=== PATIENT | male | born 1980 | race Caucasian/White ===

== ENCOUNTER 2018-10-24 22:48 | Inpatient (IN) | payer OTHER ==
[2018-10-25 00:20] LABS: ADD MAN DIFF? NO
[2018-10-25 00:22] LABS: WHITE BLOOD COUNT 13.3 10^3/ul (4.8-10.8)
[2018-10-25 00:22] LABS: BASOPHIL # 0.1 10^3/ul (0.0-0.1); BASOPHILS % 0.4 % (0.0-2.0); EOSINOPHILS # 0.1 10^3/ul (0.0-0.5); EOSINOPHILS % 0.8 % (0.0-7.0); HEMATOCRIT 45.9 % (42.0-52.0); HEMOGLOBIN 15.5 g/dl (14.0-18.0); LYMPHOCYTES # 2.3 10^3/ul (0.8-2.9); MEAN CORPUSCULAR HEMOGLOBIN 27.9 pg (29.0-33.0); MEAN CORPUSCULAR HGB CONC 33.8 g/dl (32.0-37.0); MEAN CORPUSCULAR VOLUME 82.7 fl (82.0-101.0); MEAN PLATELET VOLUME 9.9 fl (7.4-10.4); MONOCYTES % 7.5 % (0.0-11.0); NEUTROPHIL # 9.9 10^3/ul (1.6-7.5); PLATELET COUNT 272 10^3/UL (140-415); RED BLOOD COUNT 5.55 10^6/ul (4.70-6.10); RED CELL DISTRIBUTION WIDTH 12.3 % (11.5-14.5)
[2018-10-25 00:26] LABS: ADD UMIC NO; UR ASCORBIC ACID NEGATIVE (NEGATIVE); UR BILIRUBIN (Dip) NEGATIVE (NEGATIVE); UR BLOOD (Dip) NEGATIVE (NEGATIVE); UR CLARITY CLEAR (CLEAR); UR COLOR STRAW (YELLOW); UR GLUCOSE (Dip) NEGATIVE (NEGATIVE); UR KETONES (Dip) NEGATIVE (NEGATIVE); UR LEUKOCYTE ESTERASE (Dip) NEGATIVE Leu/ul (NEGATIVE); UR NITRITE (Dip) NEGATIVE (NEGATIVE); UR SPECIFIC GRAVITY (Dip) 1.013 (1.003-1.030); UR TOTAL PROTEIN (Dip) NEGATIVE (NEGATIVE); UR UROBILINOGEN (Dip) NEGATIVE (NEGATIVE)
[2018-10-25] MEDS: KETOROLAC 15 MG INJ IV (00:40)
[2018-10-25 00:41] LABS: INR 0.91; PROTIME 12.4 Sec (11.9-14.9)
[2018-10-25 00:42] LABS: PARTIAL THROMBOPLASTIN TIME 38.2 Sec (23.0-35.0)
[2018-10-25 00:45] LABS: ALANINE AMINOTRANSFERASE 54 IU/L (13-69); ALBUMIN 4.7 g/dl (3.3-4.9); ALBUMIN/GLOBULIN RATIO 1.51; ALKALINE PHOSPHATASE 49 IU/L (42-121); ANION GAP 9 (5-13); ASPARTATE AMINO TRANSFERASE 27 IU/L (15-46); BILIRUBIN,INDIRECT 0.4 mg/dl (0-1.1); BILIRUBIN,TOTAL 0.4 mg/dl (0.2-1.3); BLOOD UREA NITROGEN 10 mg/dl (7-20); CARBON DIOXIDE 30 mmol/L (21-31); CHLORIDE 102 mmol/L (97-110); CREATININE 0.68 mg/dl (0.61-1.24); Estimated GFR > 60 mL/min (>60); GLUCOSE 93 mg/dl (70-220); LIPASE 115 U/L (23-300); POTASSIUM 4.2 mmol/L (3.5-5.1); SODIUM 141 mmol/L (135-144); TOTAL PROTEIN 7.8 g/dl (6.1-8.1)
[2018-10-25] MEDS: SOD CHLORIDE 0.9% 100 ML (01:14)
[2018-10-25] MEDS: morphine 10 MG INJ IV (02:12)
[2018-10-25] MEDS ORDERED: ONDANSETRON 4 MG INJ IV ×2 (05:00→17:30)
[2018-10-25] MEDS ORDERED: ACETAMINOPHEN 325 MG TAB PO (05:00)
[2018-10-25] MEDS ORDERED: CEFAZOLIN 1 GM INJ (07:00)
[2018-10-25] MEDS ORDERED: PANTOPRAZOLE 40 MG INJ IV (12:00)
[2018-10-25] MEDS: FAMOTIDINE 20 MG INJ IV ×2 (12:27→21:20)
[2018-10-25] MEDS: PIPER-TAZO 3.375 GM IV (PMX) 100 ML IVPB ×3 (12:27→23:26)
[2018-10-25] MEDS: DEXTROSE 5%-0.9% NACL 1,000 ML IV (12:27)
[2018-10-25] MEDS ORDERED: METOCLOPRAMIDE 10 MG INJ IV (17:30)
[2018-10-25] MEDS ORDERED: HYDROmorphONE 1 MG/5 ML IV SYRINGE IV ×3 (17:30)
[2018-10-25] MEDS ORDERED: DIPHENHYDRAMINE 50 MG INJ IV (17:30)
[2018-10-25] MEDS ORDERED: ALBUTEROL 0.083% (NEB) 2.5 MG/3 ML AMP HHN (17:30)
[2018-10-25] MEDS ORDERED: FENTAnyl 50 MCG/ML VIAL IV ×3 (17:30)
[2018-10-25] MEDS ORDERED: MEPERIDINE 25 MG INJ IV (17:30)
[2018-10-25] MEDS ORDERED: FENTAnyl 50 MCG/ML VIAL ×2 (17:51→19:41)
[2018-10-25] MEDS ORDERED: ROPIVACAINE 0.5 % 30 ML VIAL (17:51)
[2018-10-25] MEDS: POLYMYXIN/BACITRACIN 1L IRRIG IRR (18:53)
[2018-10-25] MEDS ORDERED: LIDOCAINE 100 MG SYRINGE (19:41)
[2018-10-25] MEDS ORDERED: GLYCOPYRROLATE 0.4 MG INJ (19:41)
[2018-10-25] MEDS ORDERED: PROPOFOL 20 ML (19:41)
[2018-10-25] MEDS ORDERED: SUCCINYLCHOLINE CHLORIDE 100 MG/5 ML SYG IV (19:41)
[2018-10-25] MEDS ORDERED: ROCURONIUM 50 MG INJ (19:41)
[2018-10-25] MEDS ORDERED: NEOSTIGMINE 3 MG/3 ML SYRINGE (19:41)
[2018-10-25] MEDS: ONDANSETRON 4 MG INJ IV (21:20)
[2018-10-25] MEDS: morphine 2 MG INJ IV (23:27)
[2018-10-26] MEDS: DEXTROSE 5%-0.9% NACL 1,000 ML IV ×2 (02:18→12:42)
[2018-10-26 05:30] LABS: WHITE BLOOD COUNT 24.5 10^3/ul (4.8-10.8)
[2018-10-26 05:30] LABS: ABNORMAL IP MESSAGE 1; HEMATOCRIT 33.2 % (42.0-52.0); HEMOGLOBIN 11.1 g/dl (14.0-18.0); MEAN CORPUSCULAR HEMOGLOBIN 28.5 pg (29.0-33.0); MEAN CORPUSCULAR HGB CONC 33.4 g/dl (32.0-37.0); MEAN CORPUSCULAR VOLUME 85.3 fl (82.0-101.0); MEAN PLATELET VOLUME 10.5 fl (7.4-10.4); PLATELET COUNT 290 10^3/UL (140-415); POSITIVE DIFF @See below; RED BLOOD COUNT 3.89 10^6/ul (4.70-6.10); RED CELL DISTRIBUTION WIDTH 12.8 % (11.5-14.5)
[2018-10-26] MEDS: PIPER-TAZO 3.375 GM IV (PMX) 100 ML IVPB ×4 (05:34→23:53)
[2018-10-26] MEDS: morphine 2 MG INJ IV ×2 (05:35→15:00)
[2018-10-26 05:52] LABS: ADD MAN DIFF? YES
[2018-10-26 06:26] LABS: ANION GAP 11 (5-13); BLOOD UREA NITROGEN 9 mg/dl (7-20); CARBON DIOXIDE 23 mmol/L (21-31); CHLORIDE 107 mmol/L (97-110); CREATININE 0.66 mg/dl (0.61-1.24); Estimated GFR > 60 mL/min (>60); GLUCOSE 172 mg/dl (70-220); POTASSIUM 4.4 mmol/L (3.5-5.1); SODIUM 141 mmol/L (135-144)
[2018-10-26] MEDS: FAMOTIDINE 20 MG INJ IV ×2 (09:04→20:47)
[2018-10-26 11:10] LABS: ANISOCYTOSIS 1+ (0-0); BAND NEUTROPHILS #M 4.6 10^3/ul (0.0-0.6); BAND NEUTROPHILS % (M) 19 % (0-4); GIANT THROMBO% (M) 1 % (0-0); LYMPHOCYTES #M 0.7 10^3/ul (0.8-2.9); LYMPHOCYTES % (M) 3 % (15-51); MONOCYTE #M 1.4 10^3/ul (0.3-0.9); MONOCYTES % (M) 6 % (0-11); PLATELET ESTIMATE NORMAL; SEG NEUT #M 18.8 10^3/ul (1.6-7.5); SEGMENTED NEUTROPHILS (M) % 72 % (39-77)
[2018-10-26] MEDS: HYDROCODONE/APAP (5/325) TAB PO ×2 (11:10→20:41)
[2018-10-27] MEDS: HYDROCODONE/APAP (5/325) TAB PO ×3 (01:19→17:42)
[2018-10-27 05:01] LABS: ADD MAN DIFF? NO
[2018-10-27 05:07] LABS: ABNORMAL IP MESSAGE 1; BASOPHILS % 0.3 % (0.0-2.0); EOSINOPHILS % 0.1 % (0.0-7.0); HEMATOCRIT 24.9 % (42.0-52.0); HEMOGLOBIN 8.2 g/dl (14.0-18.0); LYMPHOCYTES # 1.8 10^3/ul (0.8-2.9); MEAN CORPUSCULAR HEMOGLOBIN 28.4 pg (29.0-33.0); MEAN CORPUSCULAR HGB CONC 32.9 g/dl (32.0-37.0); MEAN CORPUSCULAR VOLUME 86.2 fl (82.0-101.0); MEAN PLATELET VOLUME 10.3 fl (7.4-10.4); MONOCYTE # 2.2 10^3/ul (0.3-0.9); MONOCYTES % 13.7 % (0.0-11.0); NEUTROPHIL # 11.9 10^3/ul (1.6-7.5); NEUTROPHILS % 74.5 % (39.0-77.0); PLATELET COUNT 230 10^3/UL (140-415); POSITIVE DIFF @See below; RED BLOOD COUNT 2.89 10^6/ul (4.70-6.10); RED CELL DISTRIBUTION WIDTH 12.9 % (11.5-14.5)
[2018-10-27 05:07] LABS: WHITE BLOOD COUNT 15.9 10^3/ul (4.8-10.8)
[2018-10-27 05:31] LABS: ANION GAP 7 (5-13); BLOOD UREA NITROGEN 7 mg/dl (7-20); CALCIUM 8.4 mg/dl (8.4-10.2); CARBON DIOXIDE 30 mmol/L (21-31); CHLORIDE 105 mmol/L (97-110); Estimated GFR > 60 mL/min (>60); GLUCOSE 110 mg/dl (70-220); SODIUM 142 mmol/L (135-144)
[2018-10-27] MEDS: PIPER-TAZO 3.375 GM IV (PMX) 100 ML IVPB ×3 (05:41→17:42)
[2018-10-27] MEDS: morphine 2 MG INJ IV (05:42)
[2018-10-27] MEDS: FAMOTIDINE 20 MG TAB PO ×2 (09:22→20:16)
[2018-10-28] MEDS: PIPER-TAZO 3.375 GM IV (PMX) 100 ML IVPB ×5 (00:29→23:56)
[2018-10-28] MEDS: HYDROCODONE/APAP (5/325) TAB PO ×2 (03:24→11:54)
[2018-10-28 05:53] LABS: ABNORMAL IP MESSAGE 1; ADD MAN DIFF? NO; BASOPHIL # 0.1 10^3/ul (0.0-0.1); BASOPHILS % 0.4 % (0.0-2.0); EOSINOPHILS % 0.1 % (0.0-7.0); HEMATOCRIT 24.2 % (42.0-52.0); HEMOGLOBIN 7.9 g/dl (14.0-18.0); LYMPHOCYTES # 1.5 10^3/ul (0.8-2.9); LYMPHOCYTES % 11.5 % (15.0-51.0); MEAN CORPUSCULAR HEMOGLOBIN 28.2 pg (29.0-33.0); MEAN CORPUSCULAR HGB CONC 32.6 g/dl (32.0-37.0); MEAN CORPUSCULAR VOLUME 86.4 fl (82.0-101.0); MEAN PLATELET VOLUME 9.9 fl (7.4-10.4); MONOCYTE # 1.8 10^3/ul (0.3-0.9); MONOCYTES % 13.4 % (0.0-11.0); NEUTROPHIL # 9.9 10^3/ul (1.6-7.5); NEUTROPHILS % 74.1 % (39.0-77.0); PLATELET COUNT 240 10^3/UL (140-415); POSITIVE DIFF @See below; RED CELL DISTRIBUTION WIDTH 12.5 % (11.5-14.5)
[2018-10-28 05:53] LABS: WHITE BLOOD COUNT 13.3 10^3/ul (4.8-10.8)
[2018-10-28 06:15] LABS: ANION GAP 7 (5-13); BLOOD UREA NITROGEN 3 mg/dl (7-20); CALCIUM 8.7 mg/dl (8.4-10.2); CARBON DIOXIDE 31 mmol/L (21-31); CHLORIDE 104 mmol/L (97-110); CREATININE 0.68 mg/dl (0.61-1.24); Estimated GFR > 60 mL/min (>60); GLUCOSE 117 mg/dl (70-220); POTASSIUM 3.6 mmol/L (3.5-5.1); SODIUM 142 mmol/L (135-144)
[2018-10-28 06:25] LABS: MAGNESIUM 2.1 mg/dl (1.7-2.5)
[2018-10-28 06:25] LABS: PHOSPHORUS 2.6 mg/dl (2.5-4.9)
[2018-10-28] MEDS: SOD CHLORIDE 0.9% 100 ML (08:24)
[2018-10-28] MEDS: IOHEXOL 300MG/ML 150 ML BTL (08:25)
[2018-10-28] MEDS: FAMOTIDINE 20 MG TAB PO ×2 (08:44→20:20)
[2018-10-28 17:56] LABS: HEMATOCRIT 24.7 % (42.0-52.0); HEMOGLOBIN 8.3 g/dl (14.0-18.0)
[2018-10-29 01:16] LABS: HEMATOCRIT 23.5 % (42.0-52.0)
[2018-10-29 05:32] LABS: ADD MAN DIFF? NO
[2018-10-29 05:37] LABS: WHITE BLOOD COUNT 14.4 10^3/ul (4.8-10.8)
[2018-10-29 05:37] LABS: ABNORMAL IP MESSAGE 1; BASOPHIL # 0.1 10^3/ul (0.0-0.1); BASOPHILS % 0.4 % (0.0-2.0); EOSINOPHILS # 0.1 10^3/ul (0.0-0.5); EOSINOPHILS % 0.3 % (0.0-7.0); HEMATOCRIT 24.3 % (42.0-52.0); HEMOGLOBIN 8.1 g/dl (14.0-18.0); LYMPHOCYTES # 1.7 10^3/ul (0.8-2.9); LYMPHOCYTES % 11.8 % (15.0-51.0); MEAN CORPUSCULAR HEMOGLOBIN 28.6 pg (29.0-33.0); MEAN CORPUSCULAR HGB CONC 33.3 g/dl (32.0-37.0); MEAN CORPUSCULAR VOLUME 85.9 fl (82.0-101.0); MEAN PLATELET VOLUME 9.5 fl (7.4-10.4); MONOCYTES % 13.7 % (0.0-11.0); NEUTROPHIL # 10.5 10^3/ul (1.6-7.5); NEUTROPHILS % 73.2 % (39.0-77.0); PLATELET COUNT 288 10^3/UL (140-415); POSITIVE DIFF @See below; RED BLOOD COUNT 2.83 10^6/ul (4.70-6.10); RED CELL DISTRIBUTION WIDTH 12.4 % (11.5-14.5)
[2018-10-29] MEDS: PIPER-TAZO 3.375 GM IV (PMX) 100 ML IVPB ×3 (05:42→17:25)
[2018-10-29 05:58] LABS: MAGNESIUM 2.3 mg/dl (1.7-2.5)
[2018-10-29 05:58] LABS: CALCIUM 9.2 mg/dl (8.4-10.2)
[2018-10-29] MEDS: FAMOTIDINE 20 MG TAB PO ×2 (08:39→21:03)
[2018-10-29 12:22] LABS: HEMATOCRIT 25.7 % (42.0-52.0); HEMOGLOBIN 8.5 g/dl (14.0-18.0)
[2018-10-29] MEDS: HYDROCODONE/APAP (5/325) TAB PO (15:39)
[2018-10-29] MEDS: SOD CHLORIDE 0.9% 1,000 ML IV (16:41)
[2018-10-30] MEDS: PIPER-TAZO 3.375 GM IV (PMX) 100 ML IVPB ×4 (00:25→17:54)
[2018-10-30 05:15] LABS: ADD MAN DIFF? NO
[2018-10-30 05:19] LABS: ABNORMAL IP MESSAGE 1; BASOPHIL # 0.1 10^3/ul (0.0-0.1); BASOPHILS % 0.4 % (0.0-2.0); EOSINOPHILS # 0.1 10^3/ul (0.0-0.5); EOSINOPHILS % 0.9 % (0.0-7.0); HEMATOCRIT 25.9 % (42.0-52.0); HEMOGLOBIN 8.4 g/dl (14.0-18.0); LYMPHOCYTES # 2.1 10^3/ul (0.8-2.9); LYMPHOCYTES % 14.9 % (15.0-51.0); MEAN CORPUSCULAR HGB CONC 32.4 g/dl (32.0-37.0); MEAN CORPUSCULAR VOLUME 86.3 fl (82.0-101.0); MEAN PLATELET VOLUME 9.2 fl (7.4-10.4); MONOCYTE # 1.8 10^3/ul (0.3-0.9); MONOCYTES % 12.8 % (0.0-11.0); NEUTROPHIL # 9.8 10^3/ul (1.6-7.5); NEUTROPHILS % 70.1 % (39.0-77.0); NUCLEATED RED BLOOD CELLS% 0.1 /100WBC (0.0-0.0); PLATELET COUNT 352 10^3/UL (140-415); POSITIVE DIFF @See below; RED CELL DISTRIBUTION WIDTH 12.6 % (11.5-14.5)
[2018-10-30] MEDS: HYDROCODONE/APAP (5/325) TAB PO ×3 (05:39→15:12)
[2018-10-30] MEDS: SOD CHLORIDE 0.9% 1,000 ML IV (07:18)
[2018-10-30] MEDS: FAMOTIDINE 20 MG TAB PO ×2 (08:18→19:54)
[2018-10-30] MEDS: ACETAMINOPHEN 325 MG TAB PO (19:54)
[2018-10-30 19:55] LABS: C-REACTIVE PROTEIN 18.2 mg/dl (0.0-0.9)
[2018-10-30 20:33] LABS: ERYTHROCYTE SEDIMENTATION RATE 125 mm/Hr (0-15)
[2018-10-30 20:47] LABS: PROCALCITONIN 0.17 ng/mL (0.00-0.10)
[2018-10-31] MEDS: PIPER-TAZO 3.375 GM IV (PMX) 100 ML IVPB ×4 (00:23→17:41)
[2018-10-31] MEDS: SOD CHLORIDE 0.9% 1,000 ML IV ×3 (01:53→21:19)
[2018-10-31 05:02] LABS: ADD MAN DIFF? NO
[2018-10-31 05:09] LABS: WHITE BLOOD COUNT 14.4 10^3/ul (4.8-10.8)
[2018-10-31 05:09] LABS: ABNORMAL IP MESSAGE 1; BASOPHIL # 0.1 10^3/ul (0.0-0.1); BASOPHILS % 0.4 % (0.0-2.0); EOSINOPHILS # 0.2 10^3/ul (0.0-0.5); EOSINOPHILS % 1.2 % (0.0-7.0); HEMOGLOBIN 8.6 g/dl (14.0-18.0); LYMPHOCYTES % 14.2 % (15.0-51.0); MEAN CORPUSCULAR HEMOGLOBIN 28.2 pg (29.0-33.0); MEAN CORPUSCULAR HGB CONC 33.1 g/dl (32.0-37.0); MEAN CORPUSCULAR VOLUME 85.2 fl (82.0-101.0); MEAN PLATELET VOLUME 9.1 fl (7.4-10.4); MONOCYTE # 1.8 10^3/ul (0.3-0.9); MONOCYTES % 12.2 % (0.0-11.0); NEUTROPHIL # 10.2 10^3/ul (1.6-7.5); NEUTROPHILS % 70.5 % (39.0-77.0); NUCLEATED RED BLOOD CELLS% 0.2 /100WBC (0.0-0.0); PLATELET COUNT 410 10^3/UL (140-415); POSITIVE DIFF @See below; RED BLOOD COUNT 3.05 10^6/ul (4.70-6.10); RED CELL DISTRIBUTION WIDTH 12.7 % (11.5-14.5)
[2018-10-31 05:21] LABS: PHOSPHORUS 3.7 mg/dl (2.5-4.9)
[2018-10-31 05:21] LABS: MAGNESIUM 2.3 mg/dl (1.7-2.5)
[2018-10-31 05:25] LABS: ANION GAP 8 (5-13); BLOOD UREA NITROGEN 7 mg/dl (7-20); CALCIUM 8.6 mg/dl (8.4-10.2); CARBON DIOXIDE 29 mmol/L (21-31); CHLORIDE 103 mmol/L (97-110); CREATININE 0.61 mg/dl (0.61-1.24); Estimated GFR > 60 mL/min (>60); GLUCOSE 124 mg/dl (70-220); POTASSIUM 3.4 mmol/L (3.5-5.1); SODIUM 140 mmol/L (135-144)
[2018-10-31] MEDS: FAMOTIDINE 20 MG TAB PO ×2 (08:28→21:19)
[2018-10-31] MEDS: POTASSIUM CHLORIDE (SR) 20 MEQ TAB PO (14:09)
[2018-10-31] MEDS: ACETAMINOPHEN 325 MG TAB PO (15:12)
[2018-10-31] MEDS ORDERED: IOHEXOL 14.3 MG(I)/ML (ADULT) BTL PO (19:00)
[2018-11-01] MEDS: PIPER-TAZO 3.375 GM IV (PMX) 100 ML IVPB ×5 (00:33→23:22)
[2018-11-01 04:56] LABS: ADD MAN DIFF? NO
[2018-11-01 05:02] LABS: ABNORMAL IP MESSAGE 1; BASOPHIL # 0.1 10^3/ul (0.0-0.1); BASOPHILS % 0.5 % (0.0-2.0); EOSINOPHILS # 0.2 10^3/ul (0.0-0.5); EOSINOPHILS % 1.1 % (0.0-7.0); HEMATOCRIT 26.6 % (42.0-52.0); HEMOGLOBIN 8.7 g/dl (14.0-18.0); LYMPHOCYTES # 2.1 10^3/ul (0.8-2.9); LYMPHOCYTES % 13.5 % (15.0-51.0); MEAN CORPUSCULAR HEMOGLOBIN 28.2 pg (29.0-33.0); MEAN CORPUSCULAR HGB CONC 32.7 g/dl (32.0-37.0); MEAN CORPUSCULAR VOLUME 86.4 fl (82.0-101.0); MEAN PLATELET VOLUME 8.8 fl (7.4-10.4); MONOCYTE # 1.8 10^3/ul (0.3-0.9); MONOCYTES % 11.6 % (0.0-11.0); NEUTROPHILS % 71.2 % (39.0-77.0); NUCLEATED RED BLOOD CELLS% 0.2 /100WBC (0.0-0.0); PLATELET COUNT 458 10^3/UL (140-415); POSITIVE DIFF @See below; RED BLOOD COUNT 3.08 10^6/ul (4.70-6.10)
[2018-11-01 05:02] LABS: WHITE BLOOD COUNT 15.4 10^3/ul (4.8-10.8)
[2018-11-01 05:26] LABS: ANION GAP 6 (5-13); BLOOD UREA NITROGEN 7 mg/dl (7-20); CALCIUM 8.9 mg/dl (8.4-10.2); CARBON DIOXIDE 29 mmol/L (21-31); CHLORIDE 103 mmol/L (97-110); CREATININE 0.67 mg/dl (0.61-1.24); Estimated GFR > 60 mL/min (>60); GLUCOSE 106 mg/dl (70-220); SODIUM 138 mmol/L (135-144)
[2018-11-01] MEDS: IOHEXOL 14.3 MG(I)/ML (ADULT) BTL PO ×2 (07:00→10:00)
[2018-11-01] MEDS: FAMOTIDINE 20 MG TAB PO ×2 (08:21→21:24)
[2018-11-01] MEDS: SOD CHLORIDE 0.9% 100 ML (12:06)
[2018-11-01] MEDS: IOHEXOL 300MG/ML 150 ML BTL (12:06)
[2018-11-01 15:47] LABS: ALANINE AMINOTRANSFERASE 77 IU/L (13-69); ALBUMIN 3.5 g/dl (3.3-4.9); ALKALINE PHOSPHATASE 148 IU/L (42-121); ASPARTATE AMINO TRANSFERASE 42 IU/L (15-46); BILIRUBIN,INDIRECT 1.4 mg/dl (0-1.1); BILIRUBIN,TOTAL 1.4 mg/dl (0.2-1.3); TOTAL PROTEIN 6.4 g/dl (6.1-8.1)
[2018-11-01] MEDS: SOD CHLORIDE 0.9% 1,000 ML IV (16:52)
[2018-11-02 05:33] LABS: ADD MAN DIFF? NO
[2018-11-02 05:36] LABS: WHITE BLOOD COUNT 14.7 10^3/ul (4.8-10.8)
[2018-11-02 05:36] LABS: ABNORMAL IP MESSAGE 1; BASOPHIL # 0.1 10^3/ul (0.0-0.1); BASOPHILS % 0.5 % (0.0-2.0); EOSINOPHILS # 0.2 10^3/ul (0.0-0.5); EOSINOPHILS % 1.4 % (0.0-7.0); HEMATOCRIT 27.3 % (42.0-52.0); HEMOGLOBIN 8.8 g/dl (14.0-18.0); LYMPHOCYTES # 2.2 10^3/ul (0.8-2.9); LYMPHOCYTES % 14.6 % (15.0-51.0); MEAN CORPUSCULAR HEMOGLOBIN 27.9 pg (29.0-33.0); MEAN CORPUSCULAR HGB CONC 32.2 g/dl (32.0-37.0); MEAN CORPUSCULAR VOLUME 86.7 fl (82.0-101.0); MEAN PLATELET VOLUME 8.7 fl (7.4-10.4); MONOCYTE # 1.8 10^3/ul (0.3-0.9); MONOCYTES % 11.9 % (0.0-11.0); NEUTROPHILS % 67.4 % (39.0-77.0); NUCLEATED RED BLOOD CELLS% 0.1 /100WBC (0.0-0.0); PLATELET COUNT 536 10^3/UL (140-415); POSITIVE DIFF @See below; RED BLOOD COUNT 3.15 10^6/ul (4.70-6.10)
[2018-11-02] MEDS: PIPER-TAZO 3.375 GM IV (PMX) 100 ML IVPB ×4 (05:50→22:41)
[2018-11-02 06:12] LABS: ANION GAP 4 (5-13); BLOOD UREA NITROGEN 6 mg/dl (7-20); CALCIUM 8.9 mg/dl (8.4-10.2); CARBON DIOXIDE 31 mmol/L (21-31); CHLORIDE 102 mmol/L (97-110); CREATININE 0.69 mg/dl (0.61-1.24); Estimated GFR > 60 mL/min (>60); GLUCOSE 97 mg/dl (70-220); POTASSIUM 3.8 mmol/L (3.5-5.1); SODIUM 137 mmol/L (135-144)
[2018-11-02] MEDS: FAMOTIDINE 20 MG TAB PO ×2 (08:49→21:00)
[2018-11-02] MEDS: HYDROCODONE/APAP (5/325) TAB PO (22:38)
[2018-11-03] MEDS: PIPER-TAZO 3.375 GM IV (PMX) 100 ML IVPB ×5 (00:06→23:36)
[2018-11-03] MEDS: FAMOTIDINE 20 MG TAB PO ×2 (09:07→20:13)
[2018-11-04 05:14] LABS: ADD MAN DIFF? NO
[2018-11-04] MEDS: PIPER-TAZO 3.375 GM IV (PMX) 100 ML IVPB ×2 (05:14→12:00)
[2018-11-04 05:17] LABS: ABNORMAL IP MESSAGE 1; BASOPHIL # 0.1 10^3/ul (0.0-0.1); BASOPHILS % 0.5 % (0.0-2.0); EOSINOPHILS # 0.2 10^3/ul (0.0-0.5); EOSINOPHILS % 1.5 % (0.0-7.0); HEMATOCRIT 29.3 % (42.0-52.0); HEMOGLOBIN 9.5 g/dl (14.0-18.0); LYMPHOCYTES # 2.2 10^3/ul (0.8-2.9); LYMPHOCYTES % 14.3 % (15.0-51.0); MEAN CORPUSCULAR HGB CONC 32.4 g/dl (32.0-37.0); MEAN CORPUSCULAR VOLUME 86.4 fl (82.0-101.0); MEAN PLATELET VOLUME 8.6 fl (7.4-10.4); MONOCYTE # 1.7 10^3/ul (0.3-0.9); MONOCYTES % 10.9 % (0.0-11.0); NEUTROPHIL # 10.2 10^3/ul (1.6-7.5); NEUTROPHILS % 67.5 % (39.0-77.0); NUCLEATED RED BLOOD CELLS% 0.2 /100WBC (0.0-0.0); PLATELET COUNT 592 10^3/UL (140-415); POSITIVE DIFF @See below; RED BLOOD COUNT 3.39 10^6/ul (4.70-6.10); RED CELL DISTRIBUTION WIDTH 13.3 % (11.5-14.5)
[2018-11-04 05:17] LABS: WHITE BLOOD COUNT 15.1 10^3/ul (4.8-10.8)
[2018-11-04 05:47] LABS: ALANINE AMINOTRANSFERASE 70 IU/L (13-69); ALBUMIN 3.9 g/dl (3.3-4.9); ALBUMIN/GLOBULIN RATIO 1.05; ALKALINE PHOSPHATASE 168 IU/L (42-121); ANION GAP 7 (5-13); ASPARTATE AMINO TRANSFERASE 30 IU/L (15-46); BILIRUBIN,INDIRECT 0.9 mg/dl (0-1.1); BILIRUBIN,TOTAL 0.9 mg/dl (0.2-1.3); BLOOD UREA NITROGEN 8 mg/dl (7-20); CALCIUM 9.1 mg/dl (8.4-10.2); CARBON DIOXIDE 31 mmol/L (21-31); CHLORIDE 103 mmol/L (97-110); CREATININE 0.79 mg/dl (0.61-1.24); Estimated GFR > 60 mL/min (>60); GLUCOSE 89 mg/dl (70-220); POTASSIUM 4.1 mmol/L (3.5-5.1); SODIUM 141 mmol/L (135-144); TOTAL PROTEIN 7.6 g/dl (6.1-8.1)
[2018-11-04] MEDS: FAMOTIDINE 20 MG TAB PO (08:44)
[2018-11-04 10:30] LABS: BAND NEUTROPHILS #M 1.8 10^3/ul (0.0-0.6); BAND NEUTROPHILS % (M) 12 % (0-4); BASOPHIL #M 0.3 10^3/ul (0.0-0.0); BASOPHILS % (M) 2 % (0-2); EOSINOPHILS % (M) 1 % (0-7); HYPOCHROMASIA 1+ (0-0); LYMPHOCYTES #M 1.6 10^3/ul (0.8-2.9); LYMPHOCYTES % (M) 11 % (15-51); METAMYELOCYTES #M 0.3 10^3/ul (0.0-0.0); METAMYELOCYTES %M 2 % (0-0); MONOCYTE #M 1.6 10^3/ul (0.3-0.9); MONOCYTES % (M) 11 % (0-11); MYELOCYTES #M 0.4 10^3/ul (0.0-0.0); MYELOCYTES % (M) 3 % (0-0); OVALOCYTES 1+ (0-0); PLATELET ESTIMATE INCREASED; POIKILOCYTOSIS 1+ (0-0); POLYCHROMASIA 2+ (0-0); SEGMENTED NEUTROPHILS (M) % 58 % (39-77); SMUDGE%M 1 % (0-0); STOMATOCYTES 1+ (0-0)
== END 2018-11-04 13:07 | disposition home or self-care (01) | DRG 351 ==
LOC: FTE 22:48 → MS1 10-25 04:44
PROC: 0YU50JZ Supplement Right Inguinal Region with Synthetic Substitute, Open Approach (ICD-10-PCS; principal; 2018-10-25 17:54)
PROC: 0DBU0ZZ Excision of Omentum, Open Approach (ICD-10-PCS; 2018-10-25 17:54)
DX: K40.30 Unilateral inguinal hernia, with obstruction, without gangrene, not specified as recurrent (principal); R65.10 Systemic inflammatory response syndrome (SIRS) of non-infectious origin without acute organ dysfunction; R17 Unspecified jaundice; N99.841 Postprocedural hematoma of a genitourinary system organ or structure following other procedure; R18.8 Other ascites; E66.3 Overweight; Z68.28 Body mass index [BMI] 28.0-28.9, adult; D50.9 Iron deficiency anemia, unspecified; Y83.8 Other surgical procedures as the cause of abnormal reaction of the patient, or of later complication, without mention of misadventure at the time of the procedure; Y92.239 Unspecified place in hospital as the place of occurrence of the external cause; R94.5 Abnormal results of liver function studies; R16.0 Hepatomegaly, not elsewhere classified; K66.8 Other specified disorders of peritoneum
CPT/HCPCS: 36415; 74177; 76705; 76870; 80048; 80053; 80076; 81003; 82310; 83690; 83735; 84100; 84145; 85014; 85018; 85025; 85610; 85651; 85730; 86140; 87040-91; 88302; 88305; 96374; 96375; 99285-25